=== PATIENT | male | born 1980 | race Caucasian/White ===

== ENCOUNTER 2023-05-19 08:59 | Outpatient (AMB) | payer OTHER, SELFPAY ==
[2023-05-19 09:22] VITALS: BP 130/78; PULSE 76; O2SAT 97; BMI 36.2
--- NOTE | 2023-05-19 09:22 | A.OFFPC_ITS ---
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: Yes General Office Worker Language: Croatian Accompanied by: Daughter Allergies No Known Allergies Allergy (Verified 05/19/23 09:31) Medication List - Last Reconciled 05/19/23 by WILSON Kruse hydrochlorothiazide 25 mg PO DAILY levothyroxine 75 mcg PO DAILY pantoprazole 20 mg PO DAILY Tobacco use date assessed: 05/19/23 Dental Screening Dental Screen Date: 05/19/23 Did you have a dental visit in the last 12 months?: Yes Did you have a dental problem in the last 6 months where you did not have access to dental care?: No Was dental information given to patient?: Patient has dentist HPI HPI Comments History of Present Illness Details Patient is a 43-year-old male here to establish care. He has a past medical history significant for hypertension, hypothyroidism, and GERD. He has a surgical history for thyroidectomy. He is declining this year's influenza and COVID vaccine. Has not had a colonoscopy, will order. Will order labs. The patient has a chief complaint of left ear pain x7 days. Patient denies diminished hearing, denies trauma to the area. Denies fevers, nausea, vomiting. Patient states he has had 2 episodes of dizziness over the past week. Denies syncope. Denies shortness of Breath, numbness, chest pain. Has not tried any medication for relief. [facility] Medical History (Updated 05/19/23 @ 10:54 by WILSON Kruse) Hypothyroid Hypertension Surgical History H/O thyroidectomy Family History Mother No problems noted. Father High blood pressure Social History Housing: House Alcohol intake: current Alcohol intake frequency: does not drink Patient Tobacco Use Status: Current everyday Tobacco user Cigarette Packs Per Day: 1 e-Cigarette/Vaping Use: Never Used service: No Current occupational status: employed Current occupation: [employer] Cognitive needs: No Hearing needs: No Vision needs: Yes Questionnaire PHQ-9 Over the last 2 weeks, how often have you been bothered by any of the following problems? 1. Little interest or pleasure in doing things: more than half the days 2. Feeling down, depressed, or hopeless: not at all 3. Trouble falling or staying asleep, or sleeping too much: several days 4. Feeling tired or having little energy: more than half the days 5. Poor appetite or overeating: not at all 6. Feeling bad about yourself - or that you are a failure or have let yourself or your family down: not at all 7. Trouble concentrating on things, such as reading the newspaper or watching television: not at all 8. Moving or speaking so slowly that other people could have noticed. Or the opposite - being so fidgety or restless that you have been moving around a lot more than usual: not at all 9. Thoughts that you would be better off or of hurting yourself in some way: not at all Total score: 5 Depression Screening Interpretation: Negative Depression Screening Done: Yes 55785 - PHQ-9 Billing: Yes Source: Developed by Drs. Ab Oden, Lina oRse, Balta Narayan and colleagues, with an educational keli from [employer]. Thrive Questionnaire Date Thrive assessed: 05/19/23 I am a: Patient What is your living situation today?: I have a steady place to live Within the past 12 months, did the food you bought not last and you didn't have the money to get more?: Never true Within the past 12 months, did you worry whether your food would run out before you got money to buy more?: Never true Do you have trouble paying for medicines?: No Do you have trouble getting transportation to medical appointments?: No Do you have trouble paying your heating and electricity bill?: No Do you have trouble taking care of your child, family member or friend?: No Do you have trouble with day-to-day activities such as bathing, preparing meals, shopping, managing finances, etc.?: No Are you currently unemployed and looking for a job?: No Are you interested in more education?: No Please select the resources that you would like help with: None Currently or been in a relationship where the following occur: no concerns reported AUDIT C Alcohol Use Questionnaire (AUDIT-C) 1. How often do you have a drink containing alcohol?: Never 3. How often do you have six or more drinks on one occasion?: Never Total Score: 0 Score Reviewed/Action Taken: Yes CARLOS-7 AMB Questionnaire CARLOS-7 Date CARLOS - 7 assessed: 05/19/23 Feeling nervous, anxious, or on edge: 1 = Several days Not being able to stop or control worryin = Not at all Worrying too much about different things: 1 = Several days Trouble relaxin = More than half the days Being so restless that it is hard to sit still: 1 = Several days Becoming easily annoyed or irritable: 2 = More than half the days Feeling afraid as if something awful might happen: 0 = Not at all Total CARLOS-7 score (0-4 normal; 5-9 mild; 10-14 moderate; 15-21 severe): 7 Source: Developed by Drs. Ab Oden, Lina Rose, Balta Narayan and colleagues, with an educational keli from [employer]. CARLOS-7 Assessment Billing CARLOS-7 Assessment Tool: CARLOS-7 Assessment 70539 Review of Systems Const Details: Constitutional : No Weight loss, No Fever, No Chills, No Fatigue, No Malaise ENT/Mouth : No sore throat, No Rhinorrhea. Admits left ear pain. Eyes: No Eye Pain, No Swelling, No Redness Cardiovascular : No Chest Pain, No SOB, No Dyspnea on Exertion, No Orthopnea, No Edema, No Palpitations Respiratory : No Cough, No Sputum, No Wheezing Gastrointestinal : No Nausea, No Vomiting, No Diarrhea, No Constipation, No abdominal Pain, No Hematochezia, No Melena Genitourinary : No Dysuria, No Urinary Frequency, No Hematuria, Musculoskeletal : No joint pain, No Myalgias, No Joint Swelling Skin : No Skin Lesions, No rash Neuro : No Weakness, No Numbness, Admits ocassional Dizziness, No Headache Psych : No Anxiety/Panic, No Depression Heme/Lymph: No Bruising, No Bleeding,No Lymphadenopathy Endocrine : No Polyuria, No Polydipsia All other systems reviewed and are negative Physical exam (Primary Care) Vital Signs: Last Vital Signs Pulse 76 05/19/23 09:22 BP 130/78 05/19/23 09:22 Pulse Ox 97 05/19/23 09:22 Care Plan Goal for BP management: Vital signs reviewed stable BMI result Body Mass Index 36.2 Tobacco/Smoking Status: Tobacco use Status Tobacco use date assessed 05/19/23 05/19/23 09:27 Patient Tobacco Use Status Current everyday Tobacco 05/19/23 09:27 e-Cigarette/Vaping Use Never Used 05/19/23 09:27 Depression Screening Interpretation: Negative Currently or been in a relationship where the following occur: no concerns reported Const Other: Appearance: Alert.? Oriented X3.? No acute distress.? Head: Normocephalic, atraumatic, no step-offs or deformities Eyes: Pupils equal, round and reactive to light.? ENT: Pharynx normal.?Bilateral TM erythema. Neck: Normal inspection.? Neck supple.?Full ROM CVS: Normal heart rate and rhythm.? Pulses normal.? Respiratory: No respiratory distress.? Breath sounds normal.? Abdomen: Soft and nontender.? Skin: Skin warm and dry.? Normal skin color.? Normal skin turgor.? Extremities: No lower extremity edema.? No calf ttp. 5/5 strength to bilateral upper and lower extremities Back: No midline tenderness, no C-spine tenderness, full range of motion, no CVA tenderness bilaterally Neuro: Oriented X 3.? No motor deficit.? No sensory deficit. CN 2-12 intact Assessment and Plan Assessment & Plan (1) GERD (gastroesophageal reflux disease): Comment: Patient currently takes pantoprazole sodium daily. Patient has been educated that smoking and alcohol are 2 of the biggest exacerbating factors for reflux. Patient should reduce or avoid those activities. Patient has also been educated to avoid spicy and fatty foods, as well as to not eat at least 3 hours before bedtime. Patient states understanding Code(s): K21.9 - Gastro-esophageal reflux disease without esophagitis Qualifiers: Esophagitis presence: esophagitis presence not specified Qualified Code(s): K21.9 - Gastro-esophageal reflux disease without esophagitis (2) Otitis media: Comment: Patient has bilateral otitis media, will prescribe Augmentin to be taken as directed. Patient has been educated on the side effects of these medication. Patient has been educated on signs of worsening symptoms when to report back to the office or when to present to the ED. Code(s): H66.90 - Otitis media, unspecified, unspecified ear Qualifiers: Otitis media type: unspecified Chronicity: acute Qualified Code(s): H66.90 - Otitis media, unspecified, unspecified ear Plan: Take your medications as prescribed. If you were prescribed antibiotics today, it is important that you take your medication to their entirety, do not skip any doses, do not finish them early. Follow-up with your primary care provider this week. Return to the emergency department with new or worsening symptoms. Such as fevers, chills, chest pain, shortness of breath, nausea, vomiting, dizziness, headache, vision changes, lethargy In case of emergency call 911 Plan Patient will follow-up for annual physical exam in 2 months. Orders: Orders Lipid Panel Today E78.5 - Hyperlipidemia, unspecified TSH reflex Free T4 Today E03.9 - Hypothyroidism, unspecified UA CC w/rflx Micro + Cult Today E86.0 - Dehydration Vitamin D 25-OH (D2 and D3) Today Z13.21 - Encounter for screening for nutritional disorder AMB EKG-In Office Today R42 - Dizziness and giddiness Complete Blood Count Auto Diff Today Z13.0 - Encounter for screening for diseases of the blood and blood-forming organs and certain disorders involving the immune mechanism Comprehensive Met. Panel Today Z91.89 - Other specified personal risk factors, not elsewhere classified PSA,Total (Free>4and<10) Today Z12.5 - Encounter for screening for malignant neoplasm of prostate CA echo transthoracic complete Today R42 - Dizziness and giddiness Referrals Thoracic Surgery Referral Z12.2 - Encounter for screening for malignant neoplasm of respiratory organs Medications: New fluticasone propionate 50 mcg/actuation (Flonase Allergy Relief) administer into each nostril 1 spray intranasal DAILY 16 grams 0RF amoxicillin-pot clavulanate 875-125 mg 1 tab PO Q12H 14 tabs 0RF Review Flu Vaccine not done: patient reason (Declined) Coding Level of Care Code New Pt Level 4 (01124) Diagnoses Gastroesophageal reflux disease, unspecified whether esophagitis present K21.9 Esophagitis presence: esophagitis presence not specified Acute otitis media, unspecified otitis media type H66.90 Otitis media type: unspecified Chronicity: acute Additional Codes CARLOS-7 Assessment Billing - CARLOS-7 Assessment Tool: CARLOS-7 Assessment 64726 ([id number]) Time Spent (min) 45
== END 2023-05-19 10:52 | disposition home or self-care (01) ==
PROVIDERS: Visit Provider Nurse Practitioner Primary Care
DX: K21.9 Gastro-esophageal reflux disease without esophagitis (principal); H66.90 Otitis media, unspecified, unspecified ear
CPT/HCPCS: 99204

== ENCOUNTER 2023-05-20 08:45 | Outpatient (REF) | payer OTHER, SELFPAY ==
[2023-05-20 11:47] LABS: Appearance Urine Turbid; Color Urine Dark Yellow; Glucose Urine UA Negative (Negative); Leukocyte Esterase Urine Negative (Negative); MANUAL DIFF FLAG NO; Nitrite Urine Negative (Negative); PH 5.5 (5.0-9.0); Specific Gravity - Urine >= 1.030 (1.005-1.025); Urine Blood Negative (Negative); Urine Ketones Trace mg/dL (Negative); Urine Protein Negative (Neg-Trace)
[2023-05-20 12:25] LABS: Basophils Absolute Auto 0.1 X10*3/uL (0.0-0.2); Basophils Percent Auto 0.9 % (0-2); Eosinophils Absolute Auto 0.2 X10*3/uL (0.0-0.4); Eosinophils Percent Auto 3.3 % (0-4); Hematocrit 50.9 % (42.0-52.0); Hemoglobin 17.9 g/dl (14.0-18.0); Imm Gran Abs Auto 0.02 X10*3/uL (0.00-0.03); Imm Gran Pct Auto 0.4 % (0.0-0.4); Lymphocytes Absolute Auto 1.6 X10*3/uL (1.2-4.9); Lymphocytes Percent Auto 29.3 % (20-40); Mean Corpuscular HGB Conc 35.2 g/dl (31.0-36.0); Mean Corpuscular Hemoglobin 31.1 pg (27.0-33.0); Mean Corpuscular Volume 88.5 fL (80.0-98.0); Monocytes Absolute Auto 0.5 X10*3/uL (0.1-1.2); Monocytes Percent Auto 8.3 % (2-11); Neutrophils Absolute Auto 3.1 x10*3/uL (2.0-8.3); Neutrophils Percent Auto 57.8 % (45-73); Platelet Count 305 X10*3/uL (160-400); Red Blood Count 5.75 X10*6/uL (4.60-5.80); Red Cell Distribution Width 11.9 % (11.0-16.0); White Blood Count 5.4 X10*3/uL (4.8-10.8)
[2023-05-20 12:33] LABS: PSA,Total (Free>4and<10) 1.22 ng/mL (0.00-4.00)
[2023-05-20 12:43] LABS: Alanine Aminotransferase 42 U/L (0-40); Albumin Level 4.3 g/dL (3.5-5.0); Alkaline Phosphatase 52 U/L (39-117); Anion Gap 10 (12-20); Aspartate Amino Transferase 21 U/L (5-37); Bilirubin Total 0.8 mg/dL (0.0-1.0); Blood Urea Nitrogen 20 mg/dL (9-16); Calcium 9.7 mg/dL (8.4-10.2); Carbon Dioxide 30 mmol/L (22-29); Chloride 106 mmol/L (96-108); Cholesterol 198 mg/dL (<200); Estimated Glomerular Filt Rate > 60; Glucose Random 94 mg/dL (60-115); HDL Cholesterol 30 mg/dL (>40); LDL Cholesterol Calculated 122 mg/dL (<100); Potassium 4.5 mmol/L (3.3-5.1); Sodium 141 mmol/L (135-145); TSH reflex Free T4 1.46 uIU/mL (0.32-4.0); Total Protein 6.9 g/dL (6.5-8.0); Triglycerides 232 mg/dL (<150)
[2023-05-25 14:58] LABS: Vitamin D 25-OH, D2 <4 ng/mL; Vitamin D 25-OH, D3 18 ng/mL; Vitamin D 25-OH, Total 18 ng/mL (30-100)
== END 2023-05-20 08:46 | disposition home or self-care (01) ==
LOC: HO.HMGCLDS 08:45
PROVIDERS: PCP Nurse Practitioner Primary Care; Visit Provider Nurse Practitioner Primary Care
DX: Z13.0 Encounter for screening for diseases of the blood and blood-forming organs and certain disorders involving the immune mechanism (principal)
CPT/HCPCS: 36415; 80053; 80061; 81003; 82306; 84153; 84443; 85025

== ENCOUNTER → 2023-06-09 07:59 | Outpatient (REF) | payer OTHER, SELFPAY ==
--- NOTE | 2023-06-09 08:02 | CA_ITS ---
Transthoracic Echocardiogram Patient (Last, First, Middle): Nima Mckenna, Gender: Male Date of : 1980 Age: 43 Procedure Date: 06/09/2023 Procedure Type: Transthoracic Echocardiogram Location: OP Height: 170.18 cm Weight: 104.33 kg BSA: 2.15 m2 Heart Rate: bpm BP: 122 / 86 mmHg Family Medicine Physician: EMPERATRIZ Referring MD: Matthew RACHEL Symptoms: R42 - Dizziness and giddiness Study Quality: Adequate ECG Rhythm: Sinus Conclusions: - The left ventricular systolic function is normal. The calculated ejection fraction is 67% by biplane method. - No obvious valvular pathology seen on this study. Findings Left Ventricle Normal left ventricular cavity size. There is mildly increased left ventricular wall thickness. The left ventricular systolic function is normal. The calculated ejection fraction is 67% by biplane method. There is no evidence of regional wall motion abnormalities. Diastolic function is normal for age. LV peak GLS measurement likely not accurate. Right Ventricle Normal right ventricular cavity size and systolic function. Atria Both atria are normal in size. Aortic Valve There is a normal trileaflet aortic valve. There is no aortic valve stenosis. There is no aortic valve regurgitation. Mitral Valve The mitral valve appears normal. There is no mitral valve regurgitation. There is no mitral valve stenosis. Pulmonic Valve The pulmonic valve is likely normal. Tricuspid Valve Normal tricuspid valve structure. There is trace tricuspid valve regurgitation. There is no evidence of pulmonary hypertension. Great Vessels The asc aorta and aortic arch are normal in size. Venous The inferior vena cava is normal in size and collapses greater than 50% with inspiration. Pericardium/Pleural There is no evidence of pericardial effusion. Prior Study Comparison No prior study available for comparison. Recommendations, Care & Conclusions No obvious valvular pathology seen on this study. Measurements 2D Linear Measurements IVSd: 1.19 0.6-0.9/0.6-1.0 cm LVIDd: 4.41 3.9-5.3/4.2-5.9 cm LVIDd Index: 2.05 2.4-3.2/2.2-3.1 cm/m2 LVIDs: 2.81 2.0-3.6 cm LVPWd: 1.11 0.7-1.1 cm LA Diam: 3.50 2.7-3.8/3.0-4.0 cm LAIDs Index: 1.63 1.5-2.3 cm/m2 LV Mass: 225.00 67-162/88-224 g LV Mass Index: 104.65 43-95/49-115 g/m2 LVOT Diam: 2.30 3.0+(-)1.3 cm 2D Systolic Function EF 4C: 64.60 >55% EF 2C: 69.00 >55% EF BiP: 67.10 >55% Mitral Valve MV Pk E: 0.73 MV PK A: 0.49 MV Decel Time: 166.00 E/A: 1.50 E'Lateral: 11.00 E'Medial: 9.14 E/E' Med: 8.00 E/E' Lat: 6.60 PHT: 49.00 MVA PHT: 4.49 Decel Henderson: 4.39 Aortic Valve AoV Pk Clif: 1.05 AoV Mn Clif: 0.72 AoV VTI: 0.24 AoV Pk Grad: 4.00 Aov Mn Grad: 2.00 JACINDA Cont.VTI: 3.48 LVOT LVOT Pk Clif: 0.93 LVOT Mn Clif: 0.65 LVOT VTI: 0.20 LVOT Pk Grad: 3.00 LVOT Mn Grad: 2.00 LVOT Diam: 2.30 LVOT Area: 4.15 Diastolic Function MV Pk E: 0.73 MV Pk A: 0.49 E/A: 1.50 E'Medial: 9.14 E/E' Med: 8.00 E' Laterial: 11.00 E/E' Lat: 6.60 Right Ventricle TAPSE (mm): 25.40 TVS' Clif: 9.90 Tricuspid Valve TR Pk Clif: 2.08 TR Pk Grad: 17.00 RA Press: 3.00 RVSP: 20.00 Great Vessels Aorta Sinus of Valsalva: 4.22 2.0-3.[address] [place]: 3.07 1.7-3.4 cm Ao Asc: 3.21 2.1-3.4 cm Ao Arch: 2.80 Updated in Other Vendor System with Status of Final Howie Messina MD electronically signed on 06/11/2023 5:54:40 AM with status of Final
== END ==
LOC: HO.CARD 07:59
PROVIDERS: PCP Nurse Practitioner Primary Care; Visit Provider Nurse Practitioner Primary Care
DX: R42 Dizziness and giddiness (principal)
CPT/HCPCS: 93306

== ENCOUNTER → 2023-06-09 08:02 | Outpatient (BNV) | payer OTHER, SELFPAY | PROVIDERS: PCP Nurse Practitioner Primary Care; Visit Provider Internal Medicine | DX: R42 Dizziness and giddiness (principal) | CPT/HCPCS: 93306 ==

== ENCOUNTER 2023-09-02 07:54 | Outpatient (AMB) | payer OTHER, SELFPAY ==
[2023-09-02 08:21] VITALS: BP 120/76; PULSE 59; O2SAT 97; BMI 35.7
--- NOTE | 2023-09-02 08:21 | A.OFFPC_ITS ---
Vital Signs 09/02/23 08:21 Height 5 ft 7 in Weight 228 lb BMI 35.7 BP 120/76 Blood Pressure Location Lt brachial Position Sitting Pulse 59 Pulse Source Pulse Oximeter Pulse Oximetry (%) 97 Oxygen Delivery Method Room Air Intake Visit Reasons: Annual PE Intake Note: Pt is here today for PE. Allergies No Known Allergies Allergy (Verified 09/02/23 08:33) Medication List - Last Reconciled 09/02/23 by WILSON Kruse hydrochlorothiazide 25 mg PO DAILY levothyroxine 75 mcg PO DAILY pantoprazole 20 mg PO DAILY Tobacco use date assessed: 09/02/23 Dental Screening Dental Screen Date: 05/19/23 HPI HPI Comments History of Present Illness Details Patient is a 43-year-old male in for a sick visit. Patient has a past medical history significant for hypothyroidism, hypertension, GERD, all controlled. Patient states 3 days prior to this appointment he was working moving things around the house and developed pain in his lower back area. Patient has history of this happening previously. Denies any tingling or numbness. Denies any deformities or trauma to the area. Has used [id number] medicine with mild effect. Will order lumbar x-ray. He also states that he gets muscle cramping on the right side of his back. Has history of this before. Will order magnesium blood draw. Patient educated drink plenty of water. Patient educated on proper ergonomics. Patient is also interested in smoking cessation. He is interested in nicotine replacement therapy. Will offer counseling and educated patient on appropriate use of nicotine patch. [facility] Medical History (Updated 09/02/23 @ 09:34 by WILSON Kruse) Hypothyroid Hypertension Surgical History H/O thyroidectomy Family History Mother No problems noted. 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 83768 - PHQ-9 Billing: Patient declined-do not bill Source: Developed by Drs. Ab Oden, Lina Rose, Balta Narayan and colleagues, with an educational keli from [employer]. Thrive Questionnaire Date Thrive assessed: 05/19/23 CARLOS-7 AMB Questionnaire CARLOS-7 Date CARLOS - 7 assessed: 05/19/23 Source: Developed by Drs. Ab Oden, Lina Rose, Balta Narayan and colleagues, with an educational keli from [employer]. CARLOS-7 Assessment Billing CARLOS-7 Assessment Tool: pt declined-do not bill Review of Systems Const All systems reviewed & are unremarkable except as noted in HPI and below Physical exam (Primary Care) Vital Signs: Last Vital Signs Pulse 59 09/02/23 08:21 BP 120/76 09/02/23 08:21 Pulse Ox 97 09/02/23 08:21 Oxygen Delivery Method Room Air 09/02/23 08:21 Care Plan Goal for BP management: Blood pressure well controlled. BMI result Body Mass Index 35.7 Tobacco/Smoking Status: Tobacco use Status Tobacco use date assessed 09/02/23 09/02/23 08:25 Patient Tobacco Use Status Current everyday Tobacco 09/02/23 08:25 e-Cigarette/Vaping Use Never Used 09/02/23 08:25 Are you ready to quit: Yes Tobacco cessation counseling provided: Yes Items discussed: Nicotine replacement Relapse Prevention: discussed the importance of a supportive environment, discussed negative mood or depression after quitting, weight gain after smoking is common and discussed dietary, exercise and/or lifestyle changes Number of minutes spent counselin CPT code: 26572 - Greater than 10 minutes Thrive Assessment: Date of Thrive Assessment Date Thrive assessed 05/19/23 09/02/23 08:25 Const Other: Appearance: Alert.? Oriented X3.? No acute distress.? Head: Normocephalic Eyes: Pupils equal, round and reactive to light.? Neck: Normal inspection.? Neck supple.?Full ROM. CVS: Normal heart rate and rhythm.? Pulses normal.? Respiratory: No respiratory distress.? Breath sounds normal.? Back: No midline tenderness, no C-spine tenderness, Limited range of motion with flexion and extension, no CVA tenderness bilaterally. Negative straight leg test bilaterally. Neuro: Oriented X 3.? No motor deficit.? No sensory deficit. CN 2-12 intact Assessment and Plan Assessment & Plan (1) Low back pain: Comment: Will order lumbar x-ray. Will give cyclobenzaprine to be taken p.r.n. at night. Will also order magnesium. Code(s): M54.50 - Low back pain, unspecified Qualifiers: Chronicity: acute Back pain laterality: unspecified Sciatica presence: without sciatica Qualified Code(s): M54.50 - Low back pain, unspecified (2) Nicotine dependence: Comment: Will start patient with nicotine replacement therapy. Patient had counseling at appointment. Code(s): F17.200 - Nicotine dependence, unspecified, uncomplicated Qualifiers: Nicotine product type: cigarettes Substance use status: uncomplicated Qualified Code(s): F17.210 - Nicotine dependence, cigarettes, uncomplicated Plan: Take your medications as prescribed. If you were prescribed antibiotics today, it is important that you take your medication to their entirety, do not skip any doses, do not finish them early. Return to the emergency department with new or worsening symptoms. Such as fevers, chills, chest pain, shortness of breath, nausea, vomiting, dizziness, headache, vision changes, lethargy In case of emergency call 911 Orders: Orders XR lumbar spine 2-3V Today M54.50 - Low back pain, unspecified Magnesium Today M54.50 - Low back pain, unspecified Basic Metabolic Panel Today Referrals Gastroenterology Referral Z12.11 - Encounter for screening for malignant neoplasm of colon Medications: New cyclobenzaprine 10 mg PO BEDTIME PRN 14 tabs 0RF muscle spasm nicotine 1 patch transdermal DAILY 28 ea 0RF Coding Level of Care Code Est Pt Level 4 (79329) Diagnoses Acute low back pain without sciatica, unspecified back pain laterality M54.50 Chronicity: acute Back pain laterality: unspecified Sciatica presence: without sciatica Cigarette nicotine dependence without complication F17.210 Nicotine product type: cigarettes Substance use status: uncomplicated Additional Codes Vital Signs *Quality* - CPT code: 31179 - Greater than 10 minutes ([id number]) Time Spent (min) 32
== END 2023-09-02 09:13 | disposition home or self-care (01) ==
PROVIDERS: PCP Nurse Practitioner Primary Care; Visit Provider Nurse Practitioner Primary Care
DX: M54.50 Low back pain, unspecified (principal); F17.210 Nicotine dependence, cigarettes, uncomplicated
CPT/HCPCS: 99214; 99407

== ENCOUNTER 2023-09-02 09:00 | Outpatient (REF) | payer OTHER, SELFPAY ==
--- NOTE | ~2023-09-02 | XR_ITS ---
EXAMINATION: XR LUMBOSACRAL SPINE CLINICAL INFORMATION: Low back pain. COMPARISON: MR lumbar spine 09/15/2021. TECHNIQUE: 3 views of the lumbosacral spine. FINDINGS: Facet arthritis lower lumbar spine. Mild multilevel lumbar spondylosis with loss of disc space height at L5-S1. Bilateral sacroiliac joints are symmetric. XR/XR lumbar spine 2-3V IMPRESSION: Mild multilevel lumbar spondylosis with loss of disc space height at L5-S1.
[2023-09-02 11:45] LABS: Anion Gap 13 (12-20); Blood Urea Nitrogen 17 mg/dL (9-16); Carbon Dioxide 26 mmol/L (22-29); Chloride 105 mmol/L (96-108); Estimated Glomerular Filt Rate > 60; Glucose Random 94 mg/dL (60-115); Magnesium 2.2 mg/dL (1.6-2.6); Potassium 3.7 mmol/L (3.3-5.1); Sodium 140 mmol/L (135-145)
== END 2023-09-02 09:01 | disposition home or self-care (01) ==
LOC: HO.HMGCX 09:00
PROVIDERS: PCP Nurse Practitioner Primary Care; Visit Provider Nurse Practitioner Primary Care
DX: M54.50 Low back pain, unspecified (principal)
CPT/HCPCS: 36415; 72100; 80048; 83735

== ENCOUNTER 2024-02-25 08:48 | Outpatient (AMB) | payer OTHER, SELFPAY ==
[2024-02-25 08:51] VITALS: BP 110/70; PULSE 87; O2SAT 97; BMI 35.7
--- NOTE | 2024-02-25 08:51 | A.OFFPC_ITS ---
Vital Signs 02/25/24 08:51 Height 5 ft 7 in Weight 228 lb 4 oz BMI 35.7 BP 110/70 Blood Pressure Location Rt brachial Position Sitting Pulse 87 Pulse Source Pulse Oximeter Pulse Oximetry (%) 97 Oxygen Delivery Method Room Air Intake Visit Reasons: Transfer from [facility] Allergies No Known Allergies Allergy (Verified 09/02/23 08:33) Medication List - Last Reconciled 02/25/24 by César Ivey MD hydrochlorothiazide 25 mg PO DAILY levothyroxine 75 mcg PO DAILY pantoprazole 20 mg PO DAILY Tobacco use date assessed: 02/25/24 Dental Screening Dental Screen Date: 02/25/24 Did you have a dental visit in the last 12 months?: No Did you have a dental problem in the last 6 months where you did not have access to dental care?: No Was dental information given to patient?: No HPI Transfer from [facility] HPI Details Patient is a 43-year-old male here to establish care. He has a medical history significant for hypertension, hypothyroidism, and GERD, obesity with BMI of 35.7 He has a surgical history for partial thyroidectomy secondary to benign thyroid nodule Patient is requesting repeat ultrasound for the other half since it has been years Currently having sore throat and ear pain On examination he has slight erythema in his right and left ear canal and slight erythema right side of pharynx without any exudate Uvula midline, patient does not want to have any COVID test but requesting antibiotic since it has been happening for a week with dry cough Last visit was August of this year when patient presented with lower back pain after moving some furniture He was treated with muscle relaxer Last set of labs were done in August as well Patient was consulted regarding nicotine dependence Help offered, patient is to reach out when needed In May he was low on vitamin-D, vitamin-D supplement sent New set of lab order placed to be done in three-month with return for physical exam [facility] Medical History Hypothyroid Hypertension Surgical History H/O thyroidectomy Family History Mother No problems noted. 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 1. Little interest or pleasure in doing things: more than half the days 2. Feeling down, depressed, or hopeless: not at all 3. Trouble falling or staying asleep, or sleeping too much: several days 4. Feeling tired or having little energy: more than half the days 5. Poor appetite or overeating: not at all 6. Feeling bad about yourself - or that you are a failure or have let yourself or your family down: not at all 7. Trouble concentrating on things, such as reading the newspaper or watching television: not at all 8. Moving or speaking so slowly that other people could have noticed. Or the opposite - being so fidgety or restless that you have been moving around a lot more than usual: not at all 9. Thoughts that you would be better off or of hurting yourself in some way: not at all Total score: 5 Depression Screening Interpretation: Negative Depression Screening Done: Yes 16512 - PHQ-9 Billing: Yes Source: Developed by Drs. Ab Oden, Lina Rose, Balta Narayan and colleagues, with an educational keli from [employer]. Thrive Questionnaire Date Thrive assessed: 05/19/23 AUDIT C Alcohol Use Questionnaire (AUDIT-C) 1. How often do you have a drink containing alcohol?: Never 3. How often do you have six or more drinks on one occasion?: Never Total Score: 0 Score Reviewed/Action Taken: Yes CARLOS-7 AMB Questionnaire CARLOS-7 Date CARLOS - 7 assessed: 05/19/23 Source: Developed by Drs. Ab Oden, Lina Rose, Balta Narayan and colleagues, with an educational keli from [employer]. Review of Systems Const Denies chills, Denies fever(s) and Denies headache(s) Eyes Denies blurry vision ENT Denies headache(s), Denies nasal discharge, Denies nasal obstruction, Denies odynophagia and Denies sinus pain Card Denies chest pain at rest and Denies chest pain with activity Resp Denies cough and Denies hemoptysis GI Denies diarrhea, Denies odynophagia, Denies vomiting and Denies hematemesis Reports as per HPI Musc Denies abnormal gait Skin/Breast Reports as per HPI Neuro Denies Neuro-related abnormal movements, Denies Abnormal speech present, Denies abnormal gait, Denies headache(s) and Denies Sensory deficit (Neuro) Psych Denies mood swings and Denies paranoia Endo Reports as per HPI Paulo/Lymph Reports as per HPI Aller/Immun Reports as per HPI Physical exam (Primary Care) Vital Signs: Last Vital Signs Pulse 87 02/25/24 08:51 BP 110/70 02/25/24 08:51 Pulse Ox 97 02/25/24 08:51 Oxygen Delivery Method Room Air 02/25/24 08:51 BMI result Body Mass Index 35.7 Tobacco/Smoking Status: Tobacco use Status Tobacco use date assessed 02/25/24 02/25/24 08:56 Patient Tobacco Use Status Never used Tobacco 02/25/24 08:56 e-Cigarette/Vaping Use Never Used 02/25/24 08:54 Depression Screening Interpretation: Negative Thrive Assessment: Date of Thrive Assessment Date Thrive assessed 05/19/23 02/25/24 08:54 Const General: cooperative, comfortable and no acute distress Orientation/consciousness: patient oriented x3 HENMT Other: Mild erythema both ear canals and right side of pharynx without exudate, uvula midline Head: Yes normocephalic and Yes atraumatic Eyes General: appearance normal, both eyes and all related structures Pupils: Equal, round and reactive pupils present EOM: EOMs intact bilaterally Neck Other: Healed scar from partial thyroidectomy Neck: Yes supple and No lymphadenopathy Resp Effort & Inspection: normal respiratory effort and able to speak in complete sentences Auscultation: clear to auscultation bilaterally Cardio Heart sounds: S1 normal heart sound present and S2 normal heart sound present GI Palpation (GI): Soft to palpation and nontender Auscultation: normal bowel sounds General: Yes no CVA tenderness Back/Spine/Pelvis Back: no CVA tenderness Skin General skin exam: elasticity normal and turgor normal Neuro General: patient oriented x3 and gait normal Cranial nerves: Yes Equal, round and reactive pupils present Speech: No Abnormal speech present Sensory Exam: No Sensory deficit (Neuro) Coordination: tandem gait normal and Romberg test negative Extrem General: Yes normal exam except as noted and No edema Coding Level of Care Code New Pt Level 4 (09827) Diagnoses Establishing care with new doctor, encounter for Z76.89 Acute pharyngitis due to other specified organisms J02.8 Pharyngitis/tonsillitis etiology: other specified organisms Hypertension, essential I10 Cigarette nicotine dependence without complication F17.210 Nicotine product type: cigarettes Substance use status: uncomplicated Chronic GERD K21.9 Class 2 severe obesity due to excess calories with serious comorbidity and body mass index (BMI) of 35.0 to 35.9 in adult E66.812; E66.01; Z68.35 Obesity classification: adult class 2 (BMI 35 - 39.9) Serious obesity comorbidity presence: with serious comorbidity Body mass index: BMI 35.0-35.9 Vitamin D deficiency E55.9 History of thyroid nodule Z86.39 Assessment & Plan Assessment & Plan (1) Establishing care with new doctor, encounter for: Code(s): Z76.89 - Persons encountering health services in other specified circumstances Category: Medical (2) Pharyngitis, acute: Code(s): J02.9 - Acute pharyngitis, unspecified Category: Medical Qualifiers: Pharyngitis/tonsillitis etiology: other specified organisms Qualified Code(s): J02.8 - Acute pharyngitis due to other specified organisms (3) Hypertension, essential: Code(s): I10 - Essential (primary) hypertension Category: Medical (4) Nicotine dependence: Comment: Will start patient with nicotine replacement therapy. Patient had counseling at appointment. Code(s): F17.200 - Nicotine dependence, unspecified, uncomplicated Category: Medical Qualifiers: Nicotine product type: cigarettes Substance use status: uncomplicated Qualified Code(s): F17.210 - Nicotine dependence, cigarettes, uncomplicated (5) Chronic GERD: Code(s): K21.9 - Gastro-esophageal reflux disease without esophagitis Category: Medical (6) Obesity due to excess calories: Code(s): E66.09 - Other obesity due to excess calories Category: Medical Qualifiers: Obesity classification: adult class 2 (BMI 35 - 39.9) Serious obesity comorbidity presence: with serious comorbidity Body mass index: BMI 35.0-35.9 Qualified Code(s): E66.812 - Obesity, class 2; E66.01 - Morbid (severe) obesity due to excess calories; Z68.35 - Body mass index [BMI] 35.0-35.9, adult (7) Vitamin D deficiency: Code(s): E55.9 - Vitamin D deficiency, unspecified Category: Medical (8) History of thyroid nodule: Code(s): Z86.39 - Personal history of other endocrine, nutritional and metabolic disease Category: Medical Plan Patient is a 43-year-old male here to establish care. He has a medical history significant for hypertension, hypothyroidism, and GERD, obesity with BMI of 35.7 He has a surgical history for partial thyroidectomy secondary to benign thyroid nodule Patient is requesting repeat ultrasound for the other half since it has been years Currently having sore throat and ear pain On examination he has slight erythema in his right and left ear canal and slight erythema right side of pharynx without any exudate Uvula midline, patient does not want to have any COVID test but requesting antibiotic since it has been happening for a week with dry cough Last visit was August of this year when patient presented with lower back pain after moving some furniture He was treated with muscle relaxer Last set of labs were done in August as well Patient was consulted regarding nicotine dependence Help offered, patient is to reach out when needed In May he was low on vitamin-D, vitamin-D supplement sent New set of lab order placed to be done in three-month with return for physical exam Orders: Orders Complete Blood Count Auto Diff Today E55.9 - Vitamin D deficiency, unspecified, E66.09 - Other obesity due to excess calories, F17.210 - Nicotine dependence, cigarettes, uncomplicated, I10 - Essential (primary) hypertension, K21.9 - Gastro-esophageal reflux disease without esophagitis, Z76.89 - Persons encountering health services in other specified circumstances Comprehensive [place]. Panel Fast Today E55.9 - Vitamin D deficiency, unspecified, E66.09 - Other obesity due to excess calories, F17.210 - Nicotine dependence, cigarettes, uncomplicated, I10 - Essential (primary) hypertension, K21.9 - Gastro-esophageal reflux disease without esophagitis, Z76.89 - Persons encountering health services in other specified circumstances Lipid Panel Today E55.9 - Vitamin D deficiency, unspecified, E66.09 - Other obesity due to excess calories, F17.210 - Nicotine dependence, cigarettes, uncomplicated, I10 - Essential (primary) hypertension, K21.9 - Gastro-esophageal reflux disease without esophagitis, Z76.89 - Persons encountering health services in other specified circumstances Vitamin D 25-OH (D2 and D3) Today E55.9 - Vitamin D deficiency, unspecified, E66.09 - Other obesity due to excess calories, F17.210 - Nicotine dependence, cigarettes, uncomplicated, I10 - Essential (primary) hypertension, K21.9 - Gastro-esophageal reflux disease without esophagitis, Z76.89 - Persons encountering health services in other specified circumstances TSH reflex Free T4 Today E55.9 - Vitamin D deficiency, unspecified, E66.09 - Other obesity due to excess calories, F17.210 - Nicotine dependence, cigarettes, uncomplicated, I10 - Essential (primary) hypertension, K21.9 - Gastro- esophageal reflux disease without esophagitis, Z76.89 - Persons encountering health services in other specified circumstances US thyroid Today Z86.39 - Personal history of other endocrine, nutritional and metabolic disease Medications: New naproxen 500 mg PO BID 10 tabs 0RF pain 5 days cholecalciferol (vitamin D3) 50 mcg PO DAILY 90 caps 1RF amoxicillin 875 mg PO BID 14 tabs 0RF 7 days Refilled hydrochlorothiazide 25 mg PO DAILY 90 tabs 0RF levothyroxine 75 mcg PO DAILY 90 tabs 0RF
== END 2024-02-25 11:53 | disposition home or self-care (01) ==
PROVIDERS: PCP Nurse Practitioner Primary Care; Visit Provider Internal Medicine
DX: I10 Essential (primary) hypertension (principal); J02.8 Acute pharyngitis due to other specified organisms; E66.01 Morbid (severe) obesity due to excess calories; Z68.35 Body mass index [BMI] 35.0-35.9, adult; Z76.89 Persons encountering health services in other specified circumstances; F17.210 Nicotine dependence, cigarettes, uncomplicated; K21.9 Gastro-esophageal reflux disease without esophagitis; E55.9 Vitamin D deficiency, unspecified; Z86.39 Personal history of other endocrine, nutritional and metabolic disease

== ENCOUNTER → 2024-02-25 08:48 | Outpatient (BNVA) | payer OTHER, SELFPAY | PROVIDERS: PCP Nurse Practitioner Primary Care; Visit Provider Internal Medicine | DX: J02.8 Acute pharyngitis due to other specified organisms (principal); I10 Essential (primary) hypertension; K21.9 Gastro-esophageal reflux disease without esophagitis; E66.01 Morbid (severe) obesity due to excess calories; Z68.35 Body mass index [BMI] 35.0-35.9, adult; E55.9 Vitamin D deficiency, unspecified; Z68.39 Body mass index [BMI] 39.0-39.9, adult; F17.210 Nicotine dependence, cigarettes, uncomplicated; Z71.3 Dietary counseling and surveillance; Z71.6 Tobacco abuse counseling | CPT/HCPCS: 96127; 99212 ==

== ENCOUNTER 2024-03-08 06:59 | Outpatient (REF) | payer OTHER, SELFPAY ==
[2024-03-08 10:07] LABS: MANUAL DIFF FLAG NO
[2024-03-08 10:16] LABS: Basophils Percent Auto 0.7 % (0-2); Eosinophils Absolute Auto 0.1 X10*3/uL (0.0-0.4); Eosinophils Percent Auto 2.5 % (0-4); Hematocrit 47.4 % (42.0-52.0); Hemoglobin 17.3 g/dl (14.0-18.0); Imm Gran Abs Auto 0.01 X10*3/uL (0.00-0.03); Imm Gran Pct Auto 0.2 % (0.0-0.4); Lymphocytes Absolute Auto 1.9 X10*3/uL (1.2-4.9); Lymphocytes Percent Auto 33.3 % (20-40); Mean Corpuscular HGB Conc 36.5 g/dl (31.0-36.0); Mean Corpuscular Hemoglobin 31.8 pg (27.0-33.0); Mean Corpuscular Volume 87.1 fL (80.0-98.0); Mean Platelet Volume 9.9 fL (9.4-12.4); Monocytes Absolute Auto 0.5 X10*3/uL (0.1-1.2); Monocytes Percent Auto 9.1 % (2-11); Neutrophils Absolute Auto 3.1 x10*3/uL (2.0-8.3); Neutrophils Percent Auto 54.2 % (45-73); Platelet Count 302 X10*3/uL (160-400); Red Blood Count 5.44 X10*6/uL (4.60-5.80); Red Cell Distribution Width 11.9 % (11.0-16.0); White Blood Count 5.6 X10*3/uL (4.8-10.8)
[2024-03-08 10:48] LABS: Alanine Aminotransferase 47 U/L (0-40); Albumin Level 4.3 g/dL (3.5-5.0); Alkaline Phosphatase 52 U/L (39-117); Anion Gap 12 (12-20); Aspartate Amino Transferase 34 U/L (5-37); Bilirubin Total 1.1 mg/dL (0.0-1.0); Blood Urea Nitrogen 20 mg/dL (9-16); Calcium 9.8 mg/dL (8.4-10.2); Carbon Dioxide 25 mmol/L (22-29); Chloride 106 mmol/L (96-108); Cholesterol 212 mg/dL (<200); Estimated Glomerular Filt Rate > 60; Glucose Fasting 95 mg/dL (60-99); HDL Cholesterol 34 mg/dL (>40); LDL Cholesterol Calculated 137 mg/dL (<100); Potassium 3.6 mmol/L (3.3-5.1); Sodium 139 mmol/L (135-145); Total Protein 6.8 g/dL (6.5-8.0); Triglycerides 207 mg/dL (<150)
[2024-03-08 10:54] LABS: TSH reflex Free T4 2.18 uIU/mL (0.32-4.0)
[2024-03-12 16:59] LABS: Vitamin D 25-OH, D2 <4 ng/mL; Vitamin D 25-OH, D3 29 ng/mL; Vitamin D 25-OH, Total 29 ng/mL (30-100)
== END 2024-03-08 07:00 | disposition home or self-care (01) ==
LOC: HO.HMGCX 06:59
PROVIDERS: PCP Internal Medicine; Visit Provider Internal Medicine
DX: Z76.89 Persons encountering health services in other specified circumstances (principal); K21.9 Gastro-esophageal reflux disease without esophagitis; I10 Essential (primary) hypertension; E66.09 Other obesity due to excess calories; F17.210 Nicotine dependence, cigarettes, uncomplicated; E55.9 Vitamin D deficiency, unspecified; Z86.39 Personal history of other endocrine, nutritional and metabolic disease
CPT/HCPCS: 36415; 76536; 80053; 80061; 82306; 84443; 85025

== ENCOUNTER → 2024-05-31 14:41 | Outpatient (BNVA) | payer OTHER, SELFPAY | PROVIDERS: PCP Nurse Practitioner Primary Care; Visit Provider Internal Medicine | DX: Z00.01 Encounter for general adult medical examination with abnormal findings (principal); E78.5 Hyperlipidemia, unspecified; R07.89 Other chest pain; I10 Essential (primary) hypertension; K21.9 Gastro-esophageal reflux disease without esophagitis; E55.9 Vitamin D deficiency, unspecified; F17.210 Nicotine dependence, cigarettes, uncomplicated | CPT/HCPCS: 93005; 96127; 99212; 99396 ==

== ENCOUNTER → 2024-06-09 08:18 | Outpatient (REF) | payer OTHER, SELFPAY ==
--- OUTSIDE RECORDS SUMMARY | 2024-06-09 08:37 | XMS_ITS | Continuity of Care Document ---
Author Organization [facility] al Address [address] [place] [address]- Care Team Providers Care Respiratory Equipment Assistant Name Role Phone Edgar Peters DO Primary Care Physician Encounter [facility] Date(s): 06/02/24 - 06/02/[address] [address]- Discharge Disposition: A-D/C Home Attending Physician: Ge Montiel MD Admitting Physician: Ge Montiel MD Referring Physician: Not on Staff, Referring MD Encounter Type: Disch ES Allergies, Adverse Reactions, Alerts No Known Allergies Medications Golytely - oral powder for reconstitution See Instructions, Per instructions from GI., # 4,000 mL, 0 Refills, Maintenance, 01/20/24 2:08:00 [id number], Partial fill upon patient request if the prescription is for a schedule II opioid drug., Per instructions from GI., 170, cm, 01/20/24 13:42:00 EDT, Height, 105.7, kg, 04/09/23 0:08:00 EST, Dry Weight Start Date: 01/20/24 Status: Ordered Quantity: 4000.0 Unit: mL Repeat number: 1 Indication: Encounter for screening for malignant neoplasm of colon hydrochlorothiazide 25 mg oral tablet 25 mg, 1, tablet, By Mouth, Daily, # 30 tablet, Refills 0, Maintenance, 09/05/20 12:58:00 PM EDT, Partial fill upon patient request if the prescription is for a schedule II opioid drug. Start Date: 09/05/20 Status: Ordered Quantity: 30.0 Unit: tablet Repeat number: 1 ibuprofen 600 mg oral tablet 600 mg, 1, tablet, By Mouth, Every 6 hours, for 10 days, # 40 tablet, Refills 0, Tot. Refills 0, Acute 06/12/24 2:07:00 PM EST, 06/02/24 2:07:00 PM EST, Route to Pharmacy Electronically, [facility] #[id number], Partial fill upon patient request if the prescription is for a schedule II opioid drug., 173, cm, 06/02/24 12:23:00 EST, Height, 105.6, kg, 06/02/24 12:23:00 EST, Dry Weight Start Date: 06/02/24 Stop Date: 06/12/24 Status: Ordered Quantity: 40.0 Unit: tablet Repeat number: 1 levothyroxine 75 mcg (0.075 mg) oral tablet 1 tablet = 75 mcg, By Mouth, Daily, take first thing in morning on epmty stomach, separate food, other pills, coffee by 1 hour., # 90 tablet, 0 Refills, Maintenance, 10/02/21 5:37:00 PM EDT, Tablet, [facility] #[id number], Partial fill upon patient request if the prescription is for a schedule II opioid drug., 170, cm, 07/11/21 10:44:00 EST, Height, 102.4, kg, 03/26/21 21:13:00 EST, Dry Weight Start Date: 10/02/21 Status: Ordered Quantity: 90.0 Unit: tablet Repeat number: 1 Indication: Hypothyroidism, unspecified Omeprazole By Mouth, Daily, 0 Refills, Maintenance, 01/20/24 1:48:00 PM EDT, Partial fill upon patient request if the prescription is for a schedule II opioid drug. Start Date: 01/20/24 Status: Ordered Repeat number: 1 ondansetron 4 mg oral tablet, disintegrating 1 tablet = 4 mg, By Mouth, 3 times a day, PRN as needed for nausea/vomiting, # 10 tablet, 0 Refills, Maintenance, 06/02/24 2:07:00 PM EST, DIS Tablet, [facility] #[id number], Partial fill upon patient request if the prescription is for a schedule II opioid drug., 173, cm, 06/02/24 12:23:00 EST,Height, 105.6, kg, 06/02/24 12:23:00 EST, Dry Weight Start Date: 06/02/24 Status: Ordered Quantity: 10.0 Unit: tablet Repeat number: 1 Problem List Condition Confirmation Course Effective Dates Status Health St atus Informant Bilateral chronic knee pain Confirmed Active Vital Signs Most recent to oldest [Reference Range]: 1 2 Height 173 cm (06/02/24 12:05 PM) Weight 105.6 kg (06/02/24 12:05 PM) Oxygen Saturation [94-100 %] 100 % (06/02/24 12:05 PM) 97 % (06/02/24 12:04 PM) Pulse Rate [55-90 bpm] 80 bpm (06/02/24 12:05 PM) 95 bpm *H* (06/02/24 12:04 PM) Blood Pressure [90-138/55-84 mm Hg] 138/ 96mm Hg (06/02/24 12:05 PM) Respiratory Rate [16-30 br/min] 18 br/mi n (06/02/24 12:05 PM) Temperature [96.8-100.4 DegF] 98 DegF (06/02/24 12:05 PM) Mode of Delivery (Oxygen) Room air (06/02/24 12:05 PM) Room air (06/02/24 12:04 PM) Dry Weight 105.6 kg (06/02/24 12:05 PM) Weight Obtained Via Standing scale (06/02/24 12:05 PM) Social History Social History Type Response Smoking Status Current every day sm oker; Tobacco user in household: Yes entered on: 11/30/17 Sex Sex Representation Male (finding) Note * Dinesh BARRIGA, Ge Sarabia: PERFORM Event Display: Patient Education Leaflets Authored Date: [id number] Influenza (Adult) ?? [id number] Influenza (Adult) Updated for the 2793-1651 flu season Influenza is also called the flu. It's a viral illness that affects the air passages of your nose, sinuses, throat, and lungs. It's more serious than the common cold. The flu can easily be passed from one person to another. It is very contagious. It may be spread through the air by coughing and sneezing. It can also be spread by touching the sick person and then touching your own eyes, nose, or mouth. The flu starts 1 to 4 days after you are exposed to the flu virus. Symptoms usually last for about 3 days, but it can take 1 to 2 weeks to fully recover. You usually don???t need to take antibiotics unless you are at high risk for or have a complication from a bacterial infection. This might be an ear or sinus infection or pneumonia. Flu symptoms may be mild or severe. They can include extreme tiredness (wanting to stay in bed all day), chills, fevers, muscle aches, soreness with eye movement, headache, and a dry, hacking cough. Antiviral medicine for the flu is available by prescription. If you start taking it within 48 hours, it may help reduce how long your symptoms last and how severe they are. Your provider may do a test to find out if you have influenza and which strain you have. Home care Follow these guidelines when caring for yourself at home: ??? Stay away from cigarette smoke, whether it's yours or other people???s. ??? Acetaminophen or ibuprofen will help ease your fever, muscle aches, and headache. Don???t give aspirin to anyone younger than 18 who has the flu. This can cause a serious condition called Ayaka syndrome. ??? Nausea, loose stools, and loss of appetite are common with the flu. Eat light meals. Drink 6 to 8 glasses of liquids every day. Good choices are water, sport drinks, soft drinks without caffeine, juices, tea, and soup. Extra fluids will also help loosen secretions in your nose and lungs. ??? Zsog-ves-phkpnib cold medicines will not make the flu go awayfaster. But the medicines may help with coughing, sore throat, and congestion in your nose and sinuses. Don???t use a decongestant if you have high blood pressure. ??? Stay home until your fever has been gone for at least 24 hours without using medicine to reduce fever. ??? Drink enough fluids so that you do not become dehydrated. ??? Take warm, steamy showers to help soothe your cough. ??? If you have a sore throat, gargling with warm salty water, sucking on an ice cube, drinking hot water with honey and freshly squeezed lemon juice can help. ?? Follow-up care Follow up with your healthcare provider, or as advised, if you're not getting better over the next week. If you're age 50 or older, talk with your provider about getting a pneumococcal vaccine. You shouldalso get vaccinated against pneumococcal pneumoniae at other ages if you have a weak immune system,chronic asthma, COPD (chronic obstructive pulmonary disorder), or certain other conditions. With very few exceptions, all adults should get a flu vaccine every fall. January and January are generally good times to get vaccinated. Ask your provider about this. ?? When to get medical advice Call your healthcare provider right away if you have the flu and any of these occur: ??? Cough with lots of colored mucus (sputum) or blood in your mucus ??? Chest pain, shortness of breath, wheezing, or trouble breathing ??? Severe headache, or face, neck, or ear pain ??? New rash??with fever ??? Fever of 100.4??F (38??C)??or higher, or as??advised by your provider ??? Confusion, behavior change, or seizure ??? Severe weakness or dizziness ??? You get a new??fever or cough aftergetting better for a few days Also call your provider if you have flu symptoms and have a weakened immune system or are taking medicines that can weaken your immune system. These include steroids and certain anti-inflammatory medicines. ?? Last Reviewed Date: 2023 ?? 3786-4896 [employer]. All rights reserved. This information is not intended as a substitute for professional medical care. Always follow your healthcare professional's instructions. ?? Patient Care team information Care Team Personnel Name: Edgar Peters DO Position: [facility] Outreach Member Role: PCP Address: [address] [place] [address] [address] [place] [phone] Telecom: Care Team Related Persons Name: VANDANA GRANT Name: LUANNE SAVAGE Name: GARETH MITCHELL Insurance Providers Guarantor name: LOS SAVAGE Health Plan Information #: 1 Payer: [facility] [employer] Member Number: [id number] Policy Number: NA Group Number: [id number] Health Plan Information #: 2 Payer: [facility] [employer] Member Number: [id number] Policy Number: NA Group Number: [id number]
--- OUTSIDE RECORDS SUMMARY | 2024-06-09 08:37 | XMS_ITS | Clinical Summary ---
Author Organization [facility] it Address [address] [place] [address] Care Team Providers Care Seo Analyst Name Role Phone Edgar Peters DO Primary Care Provider [phone] Medical History Medical History Date Comments Anxiety disorder DX:Anxiety diso rder Difficulty controlling anger DX: Difficulty controlling anger HTN (hypertension) DX:HTN (hyper tension) Social History Tobacco Use Types Packs/Day Years Used Date Smoking Tobacco: Every Day Cigarettes Smokeless Tobacco: Never Sex and Gender Information Value Date Recorded Sex Assigned at Not on file Gender Identity Not on file Sexual Orientation Not on file Obstetrics History Last Filed Vital Signs Vital Sign Reading Time Taken Comments Blood Pressure - - Pulse - - Temperature - - Respiratory Rate - - Oxygen Saturation - - Inhaled Oxygen Concentration - - Weight 98.9 kg (218 lb) 10/06/2021 1:46 PM EDT Height 172.7 cm (5' 8 ) 10/06/2021 1:46 PM EDT Body Mass Index 33.15 10/06/2021 1:46 PM EDT Plan of Treatment Health Maintenance Due Date Last Done Comments Pneumococcal Vaccine: Pediatrics (0 to 5 Years) and At-Risk Patients (6 to 64 Years) (1 of 2 - PCV) 1985 DTaP,Tdap,and Td Vaccines (1 - Tdap) 1998 Hepatitis B Vaccines (1 of 3 - 19+ 3-dose series) 1998 Cholesterol Screening (Lipid Panel) 04/04/2022 Colorectal Cancer Screening: Colonoscopy 04/04/2022 Depression Screening 04/04/2022 HIV Screening 04/04/2022 Hepatitis C Screening 04/04/2022 Social Influencers of Health Screening 04/04/2022 COVID-19 Vaccine (4 - 2023-2 5 season) 2024 04/20/2021, 08/29/2020, 08/08/2020 Influenza Vaccine (#1) 2024 HIB Vaccines Aged Out No longer eligi ble based on patient's age to complete this topic HPV Vaccines Aged Out No longer eligi ble based on patient's age to complete this topic Hepatitis A Vaccines Aged Out No long er eligible based on patient's age to complete this topic IPV Vaccines Aged Out No longer eligi ble based on patient's age to complete this topic MMR Vaccines Aged Out No longer eligi ble based on patient's age to complete this topic Meningococcal ACWY Vaccine Aged Out N o longer eligible based on patient's age to complete this topic RSV Immunization Patients Under 20 months Aged Out No longer eligible b ased on patient's age to complete this topic Varicella Vaccines Aged Out No longer eligible based on patient's age to complete this topic Care Teams Seo Analyst Relationship Specialty Start Date End Date Edgar Peters DO [address] [place] [id number] PCP - General 12/08/13
== END ==
LOC: HO.CARD 08:18
PROVIDERS: PCP Internal Medicine; Visit Provider Internal Medicine
DX: R07.9 Chest pain, unspecified (principal); I10 Essential (primary) hypertension; F17.210 Nicotine dependence, cigarettes, uncomplicated

== ENCOUNTER → 2024-06-09 08:22 | Outpatient (BNV) | payer OTHER, SELFPAY | PROVIDERS: PCP Internal Medicine | DX: R06.02 Shortness of breath (principal); I49.1 Atrial premature depolarization | CPT/HCPCS: 93016; 93018 ==

== ENCOUNTER 2024-07-11 07:49 | Outpatient (REF) | payer OTHER, SELFPAY ==
--- OUTSIDE RECORDS SUMMARY | 2024-07-11 07:51 | XMS_ITS | Clinical Summary ---
Author Organization [facility] it Address [address] [place] [address] Care Team Providers Care Foster Care Case Manager Name Role Phone SaraEdgar leonard DO Primary Care Provider [phone] Medical History Medical History Date Comments Anxiety disorder DX:Anxiety diso rder Difficulty controlling anger DX: Difficulty controlling anger HTN (hypertension) DX:HTN (hyper tension) Social History Tobacco Use Types Packs/Day Years Used Date Smoking Tobacco: Every Day Cigarettes Smokeless Tobacco: Never Sex and Gender Information Value Date Recorded Sex Assigned at Not on file Legal Sex Male 9:45 PM EST Gender Identity Not on file Sexual Orientation [...] Health Maintenance Due Date Last Done Comments DTaP,Tdap,and Td Vaccines (1 - Tdap) 1998 Hepatitis B Vaccines (1 of 3 - 19+ 3-dose series) 1998 Pneumococcal Vaccine: Pediatrics (0 to 5 Years) and At-Risk Patients (6 to 64 Years) (1 of 2 - PCV) 1998 Cholesterol Screening (Lipid Panel) 04/04/2022 Colorectal Cancer Screening: Colonoscopy 04/04/2022 Depression Screening 04/04/2022 HIV Screening 04/04/2022 Hepatitis C Screening 04/04/2022 Social Influencers of Health Screening 04/04/2022 COVID-19 Vaccine (4 2023-2 5 season) 2024 04/20/2021, 08/29/2020, 08/08/2020 [...] patient's age to complete this topic Meningococcal B Vacine Aged Out No lo nger eligible based on patient's age to complete this topic RSV Immunization Patients Under 20 months Aged Out No longer eligible b ased on patient's age to complete this topic Varicella Vaccines Aged Out No longer eligible based on patient's age to complete this topic Care Teams Foster Care Case Manager Relationship Specialty Start Date End Date Edgar Peters DO [address] [place] [phone] PCP - General 12/08/13
--- NOTE | 2024-07-11 08:01 | PFT_ITS ---
Flows: FEV1: 106 % of predicted at 4.05 L FVC: 100 % of predicted at 4.80 L FEV1/FVC: 84 % Bronchodilator response: Absent Volumes: Total lung capacity: 91 % of predicted at 6.13 L Residual volume: 85 % of predicted at 1.36 L Slow vital capacity: 93 % of predicted at 4.77 L Expiratory reserve volume: 25 % of predicted at 0.35 L Diffusion capacity: Normal Impression: No obstructive or restrictive ventilatory defect. No bronchodilator response. Decreased expiratory reserve volume suggests extrathoracic restriction likely secondary to abdominal obesity. MTDD
[2024-07-11 08:36] VITALS: PULSE 66
== END 2024-07-11 07:50 | disposition home or self-care (01) ==
LOC: HO.RESP 07:49
PROVIDERS: PCP Internal Medicine; Visit Provider Internal Medicine
DX: F17.210 Nicotine dependence, cigarettes, uncomplicated (principal)
CPT/HCPCS: 94010; 94640; 94727; 94729

== ENCOUNTER → 2024-07-11 08:01 | Outpatient (BNV) | payer OTHER, SELFPAY | PROVIDERS: PCP Internal Medicine; Visit Provider Internal Medicine Pulmonary Disease | DX: F17.210 Nicotine dependence, cigarettes, uncomplicated (principal) | CPT/HCPCS: 94060; 94727; 94729 ==